=== PATIENT | male | born 1980 | race Hispanic/Latino ===

== ENCOUNTER 2021-06-01 21:44 | Inpatient (IN) | payer OTHER, SELFPAY ==
[~2021-06-01] VITALS: Ht 172.7 cm; Wt 95.0 kg
[2021-06-01 22:04] LABS: ABG BASE EXCESS -0.8 mmol/L (-2.0-3.0); ABG HCO3 22.6 mmol/L (21.0-28.0); ABG OXYGEN SATURATION 89.8 % (95.0-99.0); ABG PCO2 34 mmHg (35-48)
[2021-06-01 22:20] LABS: BASOPHILS % (AUTO) 0.1 % (0.0-5.0); HEMATOCRIT 39.5 % (42-54); LYMPHOCYTES % (AUTO) 3.4 % (21.0-51.0); MEAN CORPUSCULAR HEMOGLOBIN 29.6 pg (27.0-33.0); MEAN CORPUSCULAR HGB CONC 34.4 g/dL (32.0-36.0); MEAN CORPUSCULAR VOLUME 86.1 fL (79-99); MONOCYTES % (AUTO) 4.2 % (3.0-13.0); NEUTROPHILS % (AUTO) 91.5 % (40.0-77.0); PLATELET COUNT (AUTO) 266 K/uL (130-400); RED BLOOD CELL COUNT(AUTO) 4.59 MIL/uL (4.50-6.20); RED CELL DISTRIBUTION WIDTH 12.5 % (11.0-15.5); WHITE BLOOD COUNT (AUTO) 7.6 K/uL (4.8-10.8)
[2021-06-01] MEDS ORDERED: SOLU-MEDROL 125MG VIAL IVP ONE (22:30)
[2021-06-01] MEDS ORDERED: ALBUTEROL INHALER 90MCG/INH IH ONE ×2 (22:30→22:52)
[2021-06-01] MEDS ORDERED: AZITHROMYCIN 500MG VIAL IVPB ONE (22:30)
[2021-06-01] MEDS ORDERED: CEFTRIAXONE 1G VIAL IVP ONE (22:30)
[2021-06-01] MEDS ORDERED: 0.9% NACL 250ML IVPB ONE (22:30)
[2021-06-01 22:44] LABS: CARBON DIOXIDE 27 mmol/L (21-32); CHLORIDE 97 mmol/L (101-111); GLOMERULAR FILTR. RATE CALC 89 mL/min (>60); GLUCOSE,RANDOM 141 mg/dL (70-105); POTASSIUM 3.3 mmol/L (3.5-5.1); SODIUM SERUM 134 mmol/L (136-145); UREA NITROGEN, BLOOD 13 mg/dL (7-18)
[2021-06-01] MEDS ORDERED: AZITHROMYCIN 500MG+NS 250ML 250 ML IV ONE (22:52)
[2021-06-01] MEDS ORDERED: CEFTRIAXONE 1G VIAL ONE (22:52)
[2021-06-01] MEDS ORDERED: SOLU-MEDROL 125MG VIAL ONE (22:52)
[2021-06-01 22:59] LABS: ALANINE AMINOTRANSFERASE 192 U/L (12-78); ASPARTATE AMINOTRANSFERASE 84 U/L (10-37); BILIRUBIN,TOTAL 0.6 mg/dL (0.2-1.0); CREATINE KINASE, TOTAL 121 U/L (21-232); MYOGLOBIN 61 ng/mL (10-92); TOTAL PROTEIN, SERUM 7.6 g/dL (6.0-8.3); TROPONIN I < 0.04 ng/mL (0.00-0.06)
[2021-06-01 23:08] VITALS: BP 126/74
[2021-06-01 23:50] VITALS: BP 120/64
[2021-06-02] VITALS (7 sets, daily range): BP systolic 109–135; BP diastolic 62–71
[2021-06-02] MEDS ORDERED: LACTATED RINGERS 1000ML 1,000 ML IV SCH (00:30)
[2021-06-02] MEDS ORDERED: GUAIFENESIN-DM 200/20 MG 10 ML PO PRN (00:30)
[2021-06-02] MEDS ORDERED: ERGOCALCIFEROL (VITAMIN D2) 50,000 UNIT CAPSULE PO ONE (00:30)
[2021-06-02] MEDS ORDERED: KCL 20 MEQ ERTAB PO PRN (01:00)
[2021-06-02] MEDS ORDERED: POTASSIUM CHLORIDE 10% ELIXIR 20 MEQ/15 ML UDCUP PO PRN (01:00)
[2021-06-02] MEDS ORDERED: LIDOCAINE HCL-MPF 1% 2ML VIAL IV PRN (01:00)
[2021-06-02] MEDS ORDERED: POTASSIUM CHLORIDE 20MEQ/100ML 100 ML IV PRN (01:00)
[2021-06-02] MEDS ORDERED: 0.9%NACL 1000ML 1,000 ML IV ONE (02:30)
[2021-06-02 05:25] LABS: ABG BASE EXCESS 1.4 mmol/L (-2.0-3.0); ABG HCO3 25.8 mmol/L (21.0-28.0); ABG PCO2 40 mmHg (35-48)
[2021-06-02] MEDS ORDERED: PHARMACY COMMUNICATION MISC SCH ×2 (09:00→21:30)
[2021-06-02] MEDS: CEFTRIAXONE 1G VIAL IVP SCH ×3 (09:53→23:41)
[2021-06-02] MEDS: DEXAMETHASONE SOD PHOSPHATE 4 MG/ML 1ML VIAL IVP SCH ×2 (09:53→23:41)
[2021-06-02] MEDS: 0.9% NACL 250ML IVPB SCH ×2 (09:53→23:42)
[2021-06-02] MEDS: AZITHROMYCIN 500MG VIAL IVPB SCH ×2 (09:54→23:42)
[2021-06-02 10:13] LABS: ALBUMIN 2.7 g/dL (3.5-5.0); BILIRUBIN,TOTAL 0.4 mg/dL (0.2-1.0); CREATININE 0.9 mg/dL (0.5-1.5); POTASSIUM 3.6 mmol/L (3.5-5.1); TOTAL PROTEIN, SERUM 7.2 g/dL (6.0-8.3)
[2021-06-02] MEDS ORDERED: ERGOCALCIFEROL (VITAMIN D2) 50,000 UNIT CAPSULE ONE (10:21)
[2021-06-02] MEDS: FAMOTIDINE 20MG TAB PO SCH ×2 (10:28→21:47)
[2021-06-02] MEDS: ENOXAPARIN SODIUM 40 MG/0.4 ML SYRINGE SQ SCH (10:29)
[2021-06-02] MEDS: ASCORBIC ACID 500 MG TAB PO SCH (10:29)
[2021-06-02] MEDS: ZINC SULFATE 220 CAPSULE PO SCH (10:29)
[2021-06-02] MEDS: ALBUTEROL INHALER 90MCG/INH IH PRN (12:17)
[2021-06-02] MEDS ORDERED: REMDESIVIR (EUA) 520 200 MG in 0.9% NACL 250ML 250 ML IV ONE (15:00)
[2021-06-02] MEDS ORDERED: COMPOUND IV REFRIGERATED 1 EACH IVSOLN MISC PRN (15:00)
[2021-06-02] MEDS ORDERED: AZITHROMYCIN 500MG+NS 250ML 250 ML IV ONE (23:44)
[2021-06-03] VITALS (9 sets, daily range): BP systolic 111–143; BP diastolic 60–85
[2021-06-03] MEDS ORDERED: ACETAMINOPHEN 325 MG TAB ONE (00:08)
[2021-06-03 05:49] LABS: BASOPHILS % (AUTO) 0.1 % (0.0-5.0); HEMATOCRIT 38.9 % (42-54); LYMPHOCYTES % (AUTO) 3.4 % (21.0-51.0); MEAN CORPUSCULAR HEMOGLOBIN 29.3 pg (27.0-33.0); MEAN CORPUSCULAR HGB CONC 33.7 g/dL (32.0-36.0); MONOCYTES % (AUTO) 3.5 % (3.0-13.0); NEUTROPHILS % (AUTO) 92.5 % (40.0-77.0); PLATELET COUNT (AUTO) 308 K/uL (130-400); RED BLOOD CELL COUNT(AUTO) 4.47 MIL/uL (4.50-6.20); RED CELL DISTRIBUTION WIDTH 12.7 % (11.0-15.5); WHITE BLOOD COUNT (AUTO) 11.8 K/uL (4.8-10.8)
[2021-06-03] MEDS: REMDESIVIR LABS MISC SCH (06:00)
[2021-06-03] MEDS: ALBUTEROL INHALER 90MCG/INH IH PRN ×2 (06:00→14:00)
[2021-06-03 06:11] LABS: ALBUMIN 2.4 g/dL (3.5-5.0); BILIRUBIN,TOTAL 0.3 mg/dL (0.2-1.0); CREATININE 0.8 mg/dL (0.5-1.5); MAGNESIUM 2.3 mg/dL (1.80-2.40); POTASSIUM 3.7 mmol/L (3.5-5.1); TOTAL PROTEIN, SERUM 6.7 g/dL (6.0-8.3)
[2021-06-03] MEDS: ASCORBIC ACID 500 MG TAB PO SCH (08:49)
[2021-06-03] MEDS: FAMOTIDINE 20MG TAB PO SCH (08:49)
[2021-06-03] MEDS: ZINC SULFATE 220 CAPSULE PO SCH (08:49)
[2021-06-03] MEDS: ENOXAPARIN SODIUM 40 MG/0.4 ML SYRINGE SQ SCH (08:49)
[2021-06-03] MEDS: CEFTRIAXONE 1G VIAL IVP SCH (13:35)
[2021-06-03] MEDS ORDERED: PANTOPRAZOLE 40 MG TAB DR PO SCH (15:00)
[2021-06-03] MEDS ORDERED: SOLU-MEDROL 40MG VIAL IVP ONE (15:30)
[2021-06-03] MEDS ORDERED: ACETAMINOPHEN 325 MG TAB PO ONE (15:30)
[2021-06-03] MEDS ORDERED: TOCILIZUMAB 200MG VIAL 600 MG in 0.9%NACL 100ML 100 ML IV ONE (16:00)
[2021-06-03] MEDS: REMDESIVIR (EUA) 520 100 MG in 0.9% NACL 250ML 250 ML IV SCH (17:26)
[2021-06-03] MEDS ORDERED: POTASSIUM CHLORIDE 10% ELIXIR 20 MEQ/15 ML UDCUP PO ONE (19:00)
[2021-06-03] MEDS ORDERED: AZITHROMYCIN 500MG+NS 250ML 250 ML IV ONE (23:03)
[2021-06-04] MEDS: DEXAMETHASONE SOD PHOSPHATE 4 MG/ML 1ML VIAL IVP SCH (00:36)
[2021-06-04] MEDS: 0.9% NACL 250ML IVPB SCH (00:36)
[2021-06-04] MEDS: CEFTRIAXONE 1G VIAL IVP SCH (00:36)
[2021-06-04] MEDS: AZITHROMYCIN 500MG VIAL IVPB SCH (00:36)
[2021-06-04 01:17] VITALS: BP 124/78
[2021-06-04 05:02] VITALS: BP 124/78
[2021-06-04] MEDS: REMDESIVIR LABS MISC SCH (06:00)
[2021-06-04 07:10] VITALS: BP 121/81
[2021-06-04 07:13] LABS: ALBUMIN 2.2 g/dL (3.5-5.0); BILIRUBIN,TOTAL 0.3 mg/dL (0.2-1.0); CREATININE 0.9 mg/dL (0.5-1.5); CRP QUANTITATIVE 73.7 mg/L (0.00-9.0); TOTAL PROTEIN, SERUM 6.3 g/dL (6.0-8.3)
[2021-06-04 07:27] LABS: HEMATOCRIT 38.4 % (42-54); LYMPHOCYTES % (AUTO) 5.9 % (21.0-51.0); MEAN CORPUSCULAR HEMOGLOBIN 28.9 pg (27.0-33.0); MEAN CORPUSCULAR HGB CONC 32.8 g/dL (32.0-36.0); MEAN CORPUSCULAR VOLUME 88.1 fL (79-99); MONOCYTES % (AUTO) 6.2 % (3.0-13.0); NEUTROPHILS % (AUTO) 86.8 % (40.0-77.0); PLATELET COUNT (AUTO) 379 K/uL (130-400); RED BLOOD CELL COUNT(AUTO) 4.36 MIL/uL (4.50-6.20); RED CELL DISTRIBUTION WIDTH 12.8 % (11.0-15.5); WHITE BLOOD COUNT (AUTO) 7.6 K/uL (4.8-10.8)
[2021-06-04 07:34] LABS: HEMOGLOBIN A1C 5.8 % (4.0-6.0)
[2021-06-04 08:40] VITALS: BP 124/66
[2021-06-04] MEDS: ASCORBIC ACID 500 MG TAB PO SCH (09:16)
[2021-06-04] MEDS: ZINC SULFATE 220 CAPSULE PO SCH (09:16)
[2021-06-04] MEDS: PANTOPRAZOLE 40 MG TAB DR PO SCH (09:16)
[2021-06-04] MEDS: ENOXAPARIN SODIUM 40 MG/0.4 ML SYRINGE SQ SCH ×2 (09:17→21:07)
[2021-06-04 09:39] LABS: INR 1.1 (0.85-1.15); PROTHROMBIN TIME 11.9 SEC (9.6-11.6)
[2021-06-04 12:04] VITALS: BP 129/78
[2021-06-04] MEDS: REMDESIVIR (EUA) 520 100 MG in 0.9% NACL 250ML 250 ML IV SCH (16:19)
[2021-06-04 21:49] VITALS: BP 115/71
[2021-06-05] MEDS: DEXAMETHASONE SOD PHOSPHATE 4 MG/ML 1ML VIAL IVP SCH (00:53)
[2021-06-05 00:59] LABS: BASOPHILS % (AUTO) 0.1 % (0.0-5.0); EOSINOPHILS % (AUTO) 0.1 % (0.0-8.0); HEMATOCRIT 38.4 % (42-54); LYMPHOCYTES % (AUTO) 11.3 % (21.0-51.0); MEAN CORPUSCULAR HEMOGLOBIN 29.2 pg (27.0-33.0); MEAN CORPUSCULAR HGB CONC 32.8 g/dL (32.0-36.0); MEAN CORPUSCULAR VOLUME 89.1 fL (79-99); MONOCYTES % (AUTO) 5.9 % (3.0-13.0); NEUTROPHILS % (AUTO) 81.6 % (40.0-77.0); PLATELET COUNT (AUTO) 385 K/uL (130-400); RED BLOOD CELL COUNT(AUTO) 4.31 MIL/uL (4.50-6.20); RED CELL DISTRIBUTION WIDTH 12.6 % (11.0-15.5); WHITE BLOOD COUNT (AUTO) 7.8 K/uL (4.8-10.8)
[2021-06-05 01:37] VITALS: BP 119/56
[2021-06-05 05:49] LABS: INR 1.11 (0.85-1.15)
[2021-06-05 05:50] LABS: PARTIAL THROMBOPLASTIN TIME 25.9 SEC (26.3-35.5)
[2021-06-05 05:52] LABS: BASOPHILS % (AUTO) 0.2 % (0.0-5.0); HEMATOCRIT 44.9 % (42-54); LYMPHOCYTES % (AUTO) 7.5 % (21.0-51.0); MEAN CORPUSCULAR HEMOGLOBIN 28.9 pg (27.0-33.0); MEAN CORPUSCULAR HGB CONC 32.3 g/dL (32.0-36.0); MEAN CORPUSCULAR VOLUME 89.4 fL (79-99); MONOCYTES % (AUTO) 3.9 % (3.0-13.0); NEUTROPHILS % (AUTO) 87.4 % (40.0-77.0); PLATELET COUNT (AUTO) 424 K/uL (130-400); RED BLOOD CELL COUNT(AUTO) 5.02 MIL/uL (4.50-6.20); RED CELL DISTRIBUTION WIDTH 12.5 % (11.0-15.5); WHITE BLOOD COUNT (AUTO) 8.1 K/uL (4.8-10.8)
[2021-06-05] MEDS: REMDESIVIR LABS MISC SCH (06:00)
[2021-06-05 06:05] LABS: ALBUMIN 2.5 g/dL (3.5-5.0); BILIRUBIN,TOTAL 0.5 mg/dL (0.2-1.0); POTASSIUM 4.1 mmol/L (3.5-5.1)
[2021-06-05 08:48] VITALS: BP 114/44
[2021-06-05] MEDS: CEFTRIAXONE 1G VIAL IVP SCH (09:01)
[2021-06-05] MEDS: ZINC SULFATE 220 CAPSULE PO SCH (09:02)
[2021-06-05] MEDS: ASCORBIC ACID 500 MG TAB PO SCH (09:02)
[2021-06-05] MEDS: PANTOPRAZOLE 40 MG TAB DR PO SCH (09:02)
[2021-06-05] MEDS: ENOXAPARIN SODIUM 40 MG/0.4 ML SYRINGE SQ SCH ×2 (09:03→19:50)
[2021-06-05 10:20] VITALS: BP 129/81
[2021-06-05 16:00] VITALS: BP 142/81
[2021-06-05] MEDS: REMDESIVIR (EUA) 520 100 MG in 0.9% NACL 250ML 250 ML IV SCH (16:21)
[2021-06-05 20:35] VITALS: BP 135/77
[2021-06-06] VITALS (7 sets, daily range): BP systolic 109–130; BP diastolic 69–83
[2021-06-06] MEDS: DEXAMETHASONE SOD PHOSPHATE 4 MG/ML 1ML VIAL IVP SCH (01:30)
[2021-06-06 04:58] LABS: BASOPHILS % (AUTO) 0.3 % (0.0-5.0); EOSINOPHILS % (AUTO) 1.1 % (0.0-8.0); LYMPHOCYTES % (AUTO) 6.9 % (21.0-51.0); MEAN CORPUSCULAR HEMOGLOBIN 29.2 pg (27.0-33.0); MEAN CORPUSCULAR HGB CONC 33.2 g/dL (32.0-36.0); MONOCYTES % (AUTO) 4.5 % (3.0-13.0); PLATELET COUNT (AUTO) 429 K/uL (130-400); RED BLOOD CELL COUNT(AUTO) 4.66 MIL/uL (4.50-6.20); RED CELL DISTRIBUTION WIDTH 12.3 % (11.0-15.5); WHITE BLOOD COUNT (AUTO) 7.5 K/uL (4.8-10.8)
[2021-06-06 05:19] LABS: ALBUMIN 2.3 g/dL (3.5-5.0); BILIRUBIN,TOTAL 0.5 mg/dL (0.2-1.0); CREATININE 0.9 mg/dL (0.5-1.5); CRP QUANTITATIVE 20.6 mg/L (0.00-9.0); POTASSIUM 3.9 mmol/L (3.5-5.1)
[2021-06-06] MEDS: ENOXAPARIN SODIUM 40 MG/0.4 ML SYRINGE SQ SCH ×2 (07:14→19:49)
[2021-06-06] MEDS: ZINC SULFATE 220 CAPSULE PO SCH (07:14)
[2021-06-06] MEDS: PANTOPRAZOLE 40 MG TAB DR PO SCH (07:14)
[2021-06-06] MEDS: CEFTRIAXONE 1G VIAL IVP SCH (07:14)
[2021-06-06] MEDS: ASCORBIC ACID 500 MG TAB PO SCH (07:14)
[2021-06-06] MEDS: REMDESIVIR (EUA) 520 100 MG in 0.9% NACL 250ML 250 ML IV SCH (15:47)
[2021-06-06] MEDS: REMDESIVIR LABS MISC SCH (19:50)
[2021-06-07] MEDS: DEXAMETHASONE SOD PHOSPHATE 4 MG/ML 1ML VIAL IVP SCH (00:22)
[2021-06-07 03:24] VITALS: BP 117/69
[2021-06-07 04:42] LABS: BASOPHILS % (AUTO) 0.1 % (0.0-5.0); EOSINOPHILS % (AUTO) 2.7 % (0.0-8.0); HEMATOCRIT 41.2 % (42-54); LYMPHOCYTES % (AUTO) 8.7 % (21.0-51.0); MEAN CORPUSCULAR HEMOGLOBIN 29.5 pg (27.0-33.0); MEAN CORPUSCULAR HGB CONC 33.7 g/dL (32.0-36.0); MEAN CORPUSCULAR VOLUME 87.5 fL (79-99); MONOCYTES % (AUTO) 3.9 % (3.0-13.0); NEUTROPHILS % (AUTO) 83.4 % (40.0-77.0); PLATELET COUNT (AUTO) 416 K/uL (130-400); RED BLOOD CELL COUNT(AUTO) 4.71 MIL/uL (4.50-6.20); RED CELL DISTRIBUTION WIDTH 12.1 % (11.0-15.5); WHITE BLOOD COUNT (AUTO) 7.5 K/uL (4.8-10.8)
[2021-06-07 05:04] LABS: ALBUMIN 2.4 g/dL (3.5-5.0); BILIRUBIN,TOTAL 0.5 mg/dL (0.2-1.0); CREATININE 0.9 mg/dL (0.5-1.5); CRP QUANTITATIVE 10.3 mg/L (0.00-9.0); POTASSIUM 4.5 mmol/L (3.5-5.1); TOTAL PROTEIN, SERUM 6.1 g/dL (6.0-8.3)
[2021-06-07 07:59] VITALS: BP 117/74
[2021-06-07] MEDS: ASCORBIC ACID 500 MG TAB PO SCH (09:24)
[2021-06-07] MEDS: CEFTRIAXONE 1G VIAL IVP SCH (09:24)
[2021-06-07] MEDS: ZINC SULFATE 220 CAPSULE PO SCH (09:24)
[2021-06-07] MEDS: PANTOPRAZOLE 40 MG TAB DR PO SCH (09:24)
[2021-06-07] MEDS: ENOXAPARIN SODIUM 40 MG/0.4 ML SYRINGE SQ SCH ×2 (09:25→20:30)
[2021-06-07 11:57] VITALS: BP 101/57
[2021-06-07 16:16] VITALS: BP 107/46
[2021-06-07 19:00] VITALS: BP 108/63
[2021-06-07 23:10] VITALS: BP 100/50
[2021-06-08 03:23] VITALS: BP 96/51
[2021-06-08 04:34] LABS: BASOPHILS % (AUTO) 0.3 % (0.0-5.0); EOSINOPHILS % (AUTO) 5.9 % (0.0-8.0); HEMATOCRIT 39.2 % (42-54); LYMPHOCYTES % (AUTO) 21.5 % (21.0-51.0); MEAN CORPUSCULAR HEMOGLOBIN 28.9 pg (27.0-33.0); MEAN CORPUSCULAR HGB CONC 32.9 g/dL (32.0-36.0); MEAN CORPUSCULAR VOLUME 87.9 fL (79-99); MONOCYTES % (AUTO) 7.3 % (3.0-13.0); NEUTROPHILS % (AUTO) 62.9 % (40.0-77.0); PLATELET COUNT (AUTO) 372 K/uL (130-400); RED BLOOD CELL COUNT(AUTO) 4.46 MIL/uL (4.50-6.20); WHITE BLOOD COUNT (AUTO) 6.8 K/uL (4.8-10.8)
[2021-06-08 05:04] LABS: ALBUMIN 2.4 g/dL (3.5-5.0); BILIRUBIN,TOTAL 0.4 mg/dL (0.2-1.0); TOTAL PROTEIN, SERUM 5.6 g/dL (6.0-8.3)
[2021-06-08 08:30] VITALS: BP 106/66
[2021-06-08] MEDS ORDERED: DEXAMETHASONE 4 MG TAB PO SCH (09:00)
[2021-06-08] MEDS: PANTOPRAZOLE 40 MG TAB DR PO SCH (09:20)
[2021-06-08] MEDS: ENOXAPARIN SODIUM 40 MG/0.4 ML SYRINGE SQ SCH (09:21)
[2021-06-08 09:29] VITALS: BP 106/66
[2021-06-08 12:38] VITALS: BP 104/68
[2021-06-08] MEDS ORDERED: PANT40TA PO (14:18)
[2021-06-08] MEDS ORDERED: APIX2.5T PO (14:18)
[2021-06-08] MEDS ORDERED: DEXA6TAB PO (14:18)
[2021-06-08 16:26] VITALS: BP 113/68
== END 2021-06-08 17:30 | disposition home or self-care (01) | DRG 177 ==
LOC: EDH 21:44 → EDHIP 21:45 → 2AH 06-05 10:20
PROVIDERS: ADMIT Internal Medicine; ATTEND Internal Medicine
PROC: XW033E5 Introduction of Remdesivir Anti-infective into Peripheral Vein, Percutaneous Approach, New Technology Group 5 (ICD-10-PCS; principal; 2021-06-02)
PROC: XW033H5 Introduction of Tocilizumab into Peripheral Vein, Percutaneous Approach, New Technology Group 5 (ICD-10-PCS; 2021-06-03)
DX: U07.1 COVID-19 (principal); J12.82 Pneumonia due to coronavirus disease 2019; J96.01 Acute respiratory failure with hypoxia; D68.59 Other primary thrombophilia; E87.6 Hypokalemia; E86.0 Dehydration; E66.9 Obesity, unspecified; K76.0 Fatty (change of) liver, not elsewhere classified; R91.8 Other nonspecific abnormal finding of lung field; R79.89 Other specified abnormal findings of blood chemistry; Z68.31 Body mass index [BMI] 31.0-31.9, adult; Z68.36 Body mass index [BMI] 36.0-36.9, adult; Z79.01 Long term (current) use of anticoagulants
CPT/HCPCS: 36415; 36600; 71045; 76705; 80053; 82550; 82728; 82803; 83036; 83605; 83615; 83735; 83874; 83880; 84145; 84484; 85025; 85378; 85610; 85651; 85730; 86140; 87635; 93005; 93970; 94760; G0378; J0456; J0696; J1100; J1650; J2920; J2930; J7030; J7050; J7120; J8540